=== PATIENT | male | born 1965 | race African-American/Black ===

== ENCOUNTER 2017-05-06 20:27 | Emergency (ER) | payer MEDICAID, OTHER ==
[~2017-05-06] VITALS: Ht 190.5 cm; Wt 173.0 kg
[~2017-05-06 20:27] MED LIST: ALBU17AE27 IH; CARV6 PO; FURO20 PO
[2017-05-06 20:46] LABS: GLUCOSE,POINT OF CARE 270 MG/DL (70-110)
[2017-05-06] MEDS ORDERED: EPIN0.3P3 IM (20:48)
[2017-05-06] MEDS ORDERED: INSU100I26 SQ (20:48)
[2017-05-06] MEDS ORDERED: INSU100V SQ (20:48)
[2017-05-06] MEDS ORDERED: MOME13HF PUFF (20:48)
[2017-05-06] MEDS ORDERED: FAMO20TA8 PO (20:48)
[2017-05-06] MEDS ORDERED: SITA50 PO (20:48)
[2017-05-06] MEDS ORDERED: ATOR40TA71 PO (20:48)
[2017-05-06] MEDS ORDERED: FURO40TA5 PO (20:48)
[2017-05-06] MEDS ORDERED: METF10002 PO (20:48)
[2017-05-06] MEDS ORDERED: MONT10TA24 PO (20:48)
[2017-05-06] MEDS ORDERED: LISI-618 PO (20:48)
[2017-05-06] MEDS ORDERED: OXYC10TA93 PO (20:48)
[2017-05-06 21:30] VITALS: BP 132/90
== END 2017-05-06 22:13 | disposition home or self-care (01) ==
LOC: EMS 20:28
DX: K94.11 Enterostomy hemorrhage (principal); E66.9 Obesity, unspecified; J45.909 Unspecified asthma, uncomplicated; E11.9 Type 2 diabetes mellitus without complications; I10 Essential (primary) hypertension; Z79.4 Long term (current) use of insulin; Z43.2 Encounter for attention to ileostomy; Z68.42 Body mass index [BMI] 45.0-49.9, adult; Y84.8 Other medical procedures as the cause of abnormal reaction of the patient, or of later complication, without mention of misadventure at the time of the procedure
CPT/HCPCS: 82962; 99283; 99284

== ENCOUNTER 2018-01-21 02:50 | Emergency (ER) | payer OTHER ==
[~2018-01-21] VITALS: Ht 190.5 cm; Wt 170.9 kg
[~2018-01-21 02:50] MED LIST changes: -ALBU17AE27 IH; +ATOR40TA71 PO; -CARV6 PO; +EPIN0.3P3 IM; +FAMO20TA8 PO; -FURO20 PO; +FURO40TA5 PO; +INSU100I26 SQ; +INSU100V SQ; +LISI-618 PO; +METF-446 PO; +MOME13HF PUFF; +MONT10TA24 PO; +OXYC10TA93 PO; +SITA50 PO
[2018-01-21 04:04] LABS: GLUCOSE,POINT OF CARE 438 MG/DL (70-110)
[2018-01-21] MEDS ORDERED: FUROSEMIDE 40 MG/4 ML VIAL IVP ONE (04:30)
[2018-01-21] MEDS ORDERED: INSULIN REGULAR, HUMAN 100 UNITS/ML IVP ONE (04:30)
[2018-01-21] MEDS ORDERED: ALBUTEROL SULFATE 2.5 MG/0.5 ML NEB SOLUTION NEB ONE (04:30)
[2018-01-21] MEDS ORDERED: MethylPREDNISolone SOD SUCC 125 MG/2 ML VIAL IVP ONE (04:30)
[2018-01-21] MEDS ORDERED: IPRATROPIUM BROMIDE 0.5 MG/2.5 ML NEB SOLUTION NEB ONE (04:30)
[2018-01-21 04:46] LABS: BASOPHILS % (AUTO) 1.2 % (0.0-2.0); EOSINOPHILS % (AUTO) 3.3 % (1.0-6.0); HEMATOCRIT 38.2 % (41-53); LYMPHOCYTES # (AUTO) 2.5 K/uL (1.0-4.8); LYMPHOCYTES % (AUTO) 39.2 % (22.0-44.0); MEAN CORPUSCULAR HEMOGLOBIN 31.3 pg (26.0-34.0); MEAN CORPUSCULAR HGB CONC 34.1 G/dL (31.0-37.0); MEAN CORPUSCULAR VOLUME 92 fL (80-100); MONOCYTES # (AUTO) 0.5 K/uL (0.1-1.0); MONOCYTES % (AUTO) 8.2 % (2.0-9.0); NEUTROPHILS % (AUTO) 48.1 % (40.0-70.0); PLATELET COUNT (AUTO) 174 K/uL (150-450); RED BLOOD CELL COUNT(AUTO) 4.15 MIL/uL (4.50-5.90); RED CELL DISTRIBUTION WIDTH 13.1 % (11.5-14.5)
[2018-01-21 04:58] LABS: ALANINE AMINOTRANSFERASE 62 U/L (12-78); ALBUMIN 3.3 g/dL (3.4-5.0); ALKALINE PHOSPHATASE 108 U/L (46-116); ANION GAP 6 mmol/L (8-16); ASPARTATE AMINOTRANSFERASE 21 U/L (15-37); BILIRUBIN,TOTAL 0.3 mg/dL (0.1-1.0); CALCIUM, TOTAL 8.4 mg/dL (8.8-10.5); CARBON DIOXIDE 28 mmol/L (22-29); CHLORIDE 101 mmol/L (98-107); CREATININE 1.37 mg/dL (0.60-1.30); GLOMERULAR FILTR. RATE CALC > 60 mL/min (>60); POTASSIUM 4.1 mmol/L (3.5-5.1); SODIUM SERUM 135 mmol/L (136-145); TOTAL PROTEIN, SERUM 7.5 g/dL (6.4-8.2); UREA NITROGEN, BLOOD 16 mg/dL (7-18)
[2018-01-21 05:02] LABS: GLUCOSE,RANDOM 425 mg/dL (70-110)
[2018-01-21 05:05] LABS: B-TYPE NATRIURETIC PEPTIDE < 5 pg/mL (0-100)
[2018-01-21] MEDS ORDERED: 0.9% SODIUM CHLORIDE 5 ML NEB SOLUTION NEB ONE (05:44)
[2018-01-21] MEDS ORDERED: ALBUTEROL SULFATE HFA 90 MCG/PUFF 8 GM INHALER IH ONE (06:00)
[2018-01-21 06:04] LABS: GLUCOSE,POINT OF CARE 363 MG/DL (70-110)
[2018-01-21 07:03] LABS: GLUCOSE,POINT OF CARE 389 MG/DL (70-110)
[2018-01-21 08:15] VITALS: BP 131/73
== END 2018-01-21 08:33 | disposition home or self-care (01) ==
LOC: EMS 02:50
DX: J45.901 Unspecified asthma with (acute) exacerbation (principal); E11.65 Type 2 diabetes mellitus with hyperglycemia; I10 Essential (primary) hypertension; E11.9 Type 2 diabetes mellitus without complications; Z79.4 Long term (current) use of insulin; Z91.013 Allergy to seafood
CPT/HCPCS: 36415; 71045; 80053; 82962; 83880; 84484; 85025; 93005; 94640; 96374; 96375; 99284; G0480; J1815; J1940; J2930; 94060; J3535

== ENCOUNTER 2018-05-07 12:34 | Emergency (ER) | payer OTHER ==
[~2018-05-07] VITALS: Ht 190.5 cm; Wt 166.8 kg
[2018-05-07 12:44] VITALS: BP 130/83
[2018-05-07 12:54] LABS: GLUCOSE,POINT OF CARE 280 MG/DL (70-110)
== END 2018-05-07 14:20 | disposition home or self-care (01) ==
LOC: EMS 12:34
DX: E11.9 Type 2 diabetes mellitus without complications (principal); I10 Essential (primary) hypertension; J45.909 Unspecified asthma, uncomplicated; Z76.0 Encounter for issue of repeat prescription; Z91.013 Allergy to seafood

== ENCOUNTER 2018-06-02 06:33 | Emergency (ER) | payer OTHER ==
[~2018-06-02] VITALS: Ht 190.5 cm; Wt 163.6 kg
[~2018-06-02 06:33] MED LIST changes: -INSU100I26 SQ; -INSU100V SQ; -METF-446 PO
[2018-06-02] MEDS ORDERED: ASPI-1182 PO (06:48)
[2018-06-02] MEDS ORDERED: INSNOV SQ (06:48)
[2018-06-02] MEDS ORDERED: INSU100I26 SQ (06:48)
[2018-06-02 06:59] LABS: GLUCOSE,POINT OF CARE 426 MG/DL (70-110)
[2018-06-02] MEDS ORDERED: INSULIN REGULAR, HUMAN 100 UNITS/ML SQ ONE ×2 (07:15→07:45)
[2018-06-02 08:45] LABS: GLUCOSE,POINT OF CARE 455 MG/DL (70-110)
[2018-06-02 09:35] VITALS: BP 149/84
[2018-06-02 09:40] LABS: GLUCOSE,POINT OF CARE 386 MG/DL (70-110)
== END 2018-06-02 09:54 | disposition home or self-care (01) ==
LOC: EMS 06:35
DX: E11.65 Type 2 diabetes mellitus with hyperglycemia (principal); I10 Essential (primary) hypertension; J45.909 Unspecified asthma, uncomplicated; Z43.2 Encounter for attention to ileostomy; Z79.4 Long term (current) use of insulin; Z79.82 Long term (current) use of aspirin; Z79.899 Other long term (current) drug therapy; Z76.0 Encounter for issue of repeat prescription
CPT/HCPCS: 82962; 96372; 99284; J1815

== ENCOUNTER 2019-03-06 07:26 | Emergency (ER) | payer OTHER ==
[~2019-03-06] VITALS: Ht 190.5 cm; Wt 159.1 kg
[~2019-03-06 07:26] MED LIST changes: +ASPI-1111 PO; -EPIN0.3P3 IM; -FAMO20TA8 PO; +INSNOV SQ; +INSU100I26 SQ; -MONT10TA24 PO; +MONT10TA26 PO; +OXYC10TA48 PO; -OXYC10TA93 PO; -SITA50 PO
[2019-03-06 08:09] LABS: GLUCOSE,POINT OF CARE 436 MG/DL (70-110)
[2019-03-06] MEDS ORDERED: SODIUM CHLORIDE 0.9% 1,000 ML IV ONE (08:30)
[2019-03-06 08:45] LABS: BASOPHILS % (AUTO) 1.5 % (0.0-2.0); EOSINOPHILS % (AUTO) 3.9 % (1.0-6.0); HEMATOCRIT 40.1 % (41-53); HEMOGLOBIN 13.8 g/dL (13.5-17.5); LYMPHOCYTES # (AUTO) 1.8 K/uL (1.0-4.8); LYMPHOCYTES % (AUTO) 36.4 % (22.0-44.0); MEAN CORPUSCULAR HEMOGLOBIN 31.7 pg (26.0-34.0); MEAN CORPUSCULAR HGB CONC 34.5 G/dL (31.0-37.0); MEAN CORPUSCULAR VOLUME 92 fL (80-100); MONOCYTES # (AUTO) 0.4 K/uL (0.1-1.0); MONOCYTES % (AUTO) 7.9 % (2.0-9.0); NEUTROPHILS # (AUTO) 2.5 K/uL (1.8-7.7); NEUTROPHILS % (AUTO) 50.3 % (40.0-70.0); PLATELET COUNT (AUTO) 215 K/uL (150-450); RED BLOOD CELL COUNT(AUTO) 4.37 MIL/uL (4.50-5.90); RED CELL DISTRIBUTION WIDTH 13.1 % (11.5-14.5)
[2019-03-06 08:54] LABS: ANION GAP 7 mmol/L (8-16); CALCIUM, TOTAL 8.8 mg/dL (8.8-10.5); CARBON DIOXIDE 27 mmol/L (22-29); CHLORIDE 103 mmol/L (98-107); CREATININE 1.23 mg/dL (0.60-1.30); GLOMERULAR FILTR. RATE CALC > 60 mL/min (>60); GLUCOSE,RANDOM 391 mg/dL (70-110); POTASSIUM 4.5 mmol/L (3.5-5.1); SODIUM SERUM 137 mmol/L (136-145); UREA NITROGEN, BLOOD 14 mg/dL (7-18)
[2019-03-06 09:00] LABS: ALANINE AMINOTRANSFERASE 58 U/L (12-78); ALBUMIN 3.4 g/dL (3.4-5.0); ALKALINE PHOSPHATASE 126 U/L (46-116); ASPARTATE AMINOTRANSFERASE 23 U/L (15-37); BILIRUBIN,TOTAL 0.4 mg/dL (0.1-1.0); TOTAL PROTEIN, SERUM 7.4 g/dL (6.4-8.2)
[2019-03-06 09:18] LABS: ACETONE,BLOOD NEGATIVE (NEGATIVE)
[2019-03-06 09:23] LABS: APPEARANCE,URINE CLEAR (CLEAR); BILIRUBIN,URINE NEGATIVE (NEGATIVE); GLUCOSE, URINE (UA) >=1000 mg/dL (NEGATIVE); KETONES,URINE NEGATIVE (NEGATIVE); LEUKOCYTE ESTERASE ,URINE NEGATIVE (NEGATIVE); NITRATE,URINE NEGATIVE (NEGATIVE); OCCULT BLOOD,URINE NEGATIVE (NEGATIVE); PROTEIN,URINE NEGATIVE (NEGATIVE); UROBILINOGEN,URINE 0.2 mg/dL (<=1.0)
[2019-03-06 09:37] LABS: BACTERIA,URINE None Seen /HPF (None Seen); RBC,URINE None Seen /HPF (0-2); SQUAMOUS EPITHELIAL CELL,UR None Seen /LPF (None Seen); WBC,URINE None Seen /HPF (0-5)
[2019-03-06 10:53] LABS: GLUCOSE,POINT OF CARE 356 MG/DL (70-110)
[2019-03-06 11:25] VITALS: BP 157/83
== END 2019-03-06 12:20 | disposition home or self-care (01) ==
LOC: EMS 07:26
DX: E11.65 Type 2 diabetes mellitus with hyperglycemia (principal); L60.0 Ingrowing nail; J45.909 Unspecified asthma, uncomplicated; I10 Essential (primary) hypertension; Z88.6 Allergy status to analgesic agent; Z91.013 Allergy to seafood; Z79.82 Long term (current) use of aspirin; Z79.899 Other long term (current) drug therapy; Z79.4 Long term (current) use of insulin
CPT/HCPCS: 36415; 73660; 80053; 81001; 82009; 82962; 85025; 96360; 96361; 99284; J7030

== ENCOUNTER 2019-05-05 23:46 | Emergency (ER) | payer OTHER ==
[~2019-05-05] VITALS: Ht 190.5 cm; Wt 118.2 kg
[2019-05-06] MEDS ORDERED: KETOROLAC TROMETHAMINE 30 MG/ML VIAL IM ONE
[2019-05-06] MEDS ORDERED: AMOX TR/POT CLAV 875 MG/125 MG TABLET PO ONE
[2019-05-06 00:15] LABS: BASOPHILS % (AUTO) 1.3 % (0.0-2.0); HEMATOCRIT 41.7 % (41-53); HEMOGLOBIN 14.1 g/dL (13.5-17.5); LYMPHOCYTES # (AUTO) 1.2 K/uL (1.0-4.8); LYMPHOCYTES % (AUTO) 23.7 % (22.0-44.0); MEAN CORPUSCULAR HEMOGLOBIN 31.1 pg (26.0-34.0); MEAN CORPUSCULAR HGB CONC 33.9 G/dL (31.0-37.0); MEAN CORPUSCULAR VOLUME 92 fL (80-100); MONOCYTES # (AUTO) 0.4 K/uL (0.1-1.0); MONOCYTES % (AUTO) 7.4 % (2.0-9.0); NEUTROPHILS # (AUTO) 3.3 K/uL (1.8-7.7); NEUTROPHILS % (AUTO) 64.6 % (40.0-70.0); PLATELET COUNT (AUTO) 187 K/uL (150-450); RED BLOOD CELL COUNT(AUTO) 4.55 MIL/uL (4.50-5.90); RED CELL DISTRIBUTION WIDTH 12.8 % (11.5-14.5)
[2019-05-06 00:31] LABS: ALANINE AMINOTRANSFERASE 38 U/L (12-78); ALBUMIN 3.8 g/dL (3.4-5.0); ALKALINE PHOSPHATASE 125 U/L (46-116); ANION GAP 10 mmol/L (8-16); ASPARTATE AMINOTRANSFERASE 15 U/L (15-37); BILIRUBIN,TOTAL 0.4 mg/dL (0.1-1.0); CALCIUM, TOTAL 9.1 mg/dL (8.8-10.5); CARBON DIOXIDE 23 mmol/L (22-29); CHLORIDE 100 mmol/L (98-107); CREATININE 1.38 mg/dL (0.60-1.30); GLOMERULAR FILTR. RATE CALC > 60 mL/min (>60); LIPASE 181 U/L (73-393); SODIUM SERUM 133 mmol/L (136-145); TOTAL PROTEIN, SERUM 7.6 g/dL (6.4-8.2); UREA NITROGEN, BLOOD 19 mg/dL (7-18)
[2019-05-06 00:33] LABS: GLUCOSE,RANDOM 515 mg/dL (70-110)
[2019-05-06] MEDS ORDERED: SODIUM CHLORIDE 0.9% 1,000 ML IV ONE (00:45)
[2019-05-06] MEDS ORDERED: INSULIN REGULAR, HUMAN 100 UNITS/ML SQ ONE (00:45)
[2019-05-06] MEDS ORDERED: KETOROLAC TROMETHAMINE 30 MG/ML VIAL IVP ONE (01:15)
[2019-05-06 02:09] LABS: GLUCOSE,POINT OF CARE 398 MG/DL (70-110)
[2019-05-06 02:20] VITALS: BP 149/89
== END 2019-05-06 02:22 | disposition home or self-care (01) ==
LOC: EMS 23:46
DX: S61.451A Open bite of right hand, initial encounter (principal); E11.65 Type 2 diabetes mellitus with hyperglycemia; I10 Essential (primary) hypertension; J45.909 Unspecified asthma, uncomplicated; Z91.013 Allergy to seafood; Z88.6 Allergy status to analgesic agent; Z79.899 Other long term (current) drug therapy; W54.0XXA Bitten by dog, initial encounter; Y93.89 Activity, other specified; Y92.89 Other specified places as the place of occurrence of the external cause; Y99.8 Other external cause status
CPT/HCPCS: 36415; 73130; 80053; 82962; 83690; 85025; 96361; 96372; 96374; 99284; J1815; J1885; J7030

== ENCOUNTER 2020-10-20 16:21 | Emergency (ER) | payer OTHER ==
[~2020-10-20] VITALS: Ht 190.5 cm; Wt 170.0 kg
[~2020-10-20 16:21] MED LIST changes: -ASPI-1111 PO; +ASPI-1444 PO; -LISI-618 PO; +LISI20TA24 PO; -MONT10TA26 PO; +MONT10TA32 PO
[2020-10-20] MEDS: AMOX TR/POT CLAV 875 MG/125 MG TABLET PO ONE (18:52)
[2020-10-20] MEDS: BACITRACIN 0.9 GM PACKET OINTMENT TP ONE (18:52)
[2020-10-20] MEDS: TraMADol HCL 50 MG TABLET PO ONE (18:53)
[2020-10-20 19:13] VITALS: BP 143/88
== END 2020-10-20 19:40 | disposition home or self-care (01) ==
LOC: EMS 16:21
DX: S01.352A Open bite of left ear, initial encounter (principal); S41.151A Open bite of right upper arm, initial encounter; I10 Essential (primary) hypertension; E11.9 Type 2 diabetes mellitus without complications; J45.909 Unspecified asthma, uncomplicated; Z88.6 Allergy status to analgesic agent; Z91.013 Allergy to seafood; Z79.899 Other long term (current) drug therapy; W54.0XXA Bitten by dog, initial encounter; Y93.89 Activity, other specified; Y92.89 Other specified places as the place of occurrence of the external cause; Y99.8 Other external cause status
CPT/HCPCS: 99283

== ENCOUNTER 2020-10-28 21:20 | Emergency (ER) | payer OTHER ==
[~2020-10-28] VITALS: Ht 190.5 cm; Wt 157.4 kg
[2020-10-28 22:28] LABS: GLUCOMETER DEV NAME(LOC) ERT.5; GLUCOSE,POINT OF CARE 292 MG/DL (70-110)
[2020-10-28 23:17] LABS: BASOPHILS % (AUTO) 1.5 % (0.0-2.0); EOSINOPHILS % (AUTO) 4.7 % (1.0-6.0); HEMATOCRIT 40.2 % (41-53); HEMOGLOBIN 13.5 g/dL (13.5-17.5); LYMPHOCYTES # (AUTO) 1.9 K/uL (1.0-4.8); LYMPHOCYTES % (AUTO) 34.7 % (22.0-44.0); MEAN CORPUSCULAR HEMOGLOBIN 30.9 pg (26.0-34.0); MEAN CORPUSCULAR HGB CONC 33.6 G/dL (31.0-37.0); MEAN CORPUSCULAR VOLUME 92 fL (80-100); MONOCYTES # (AUTO) 0.5 K/uL (0.1-1.0); MONOCYTES % (AUTO) 8.5 % (2.0-9.0); NEUTROPHILS # (AUTO) 2.8 K/uL (1.8-7.7); NEUTROPHILS % (AUTO) 50.6 % (40.0-70.0); PLATELET COUNT (AUTO) 223 K/uL (150-450); RED BLOOD CELL COUNT(AUTO) 4.37 MIL/uL (4.50-5.90); RED CELL DISTRIBUTION WIDTH 13.3 % (11.5-14.5)
[2020-10-28 23:29] LABS: ANION GAP 6 mmol/L (8-16); CALCIUM, TOTAL 8.9 mg/dL (8.8-10.5); CARBON DIOXIDE 27 mmol/L (22-29); CHLORIDE 105 mmol/L (98-107); CREATININE 1.07 mg/dL (0.60-1.30); GLOMERULAR FILTR. RATE CALC > 60 mL/min (>60); GLUCOSE,RANDOM 309 mg/dL (70-110); POTASSIUM 3.9 mmol/L (3.5-5.1); SODIUM SERUM 138 mmol/L (136-145); UREA NITROGEN, BLOOD 16 mg/dL (7-18)
[2020-10-28 23:44] LABS: B-TYPE NATRIURETIC PEPTIDE 5 pg/mL (0-100)
[2020-10-28 23:54] LABS: ALANINE AMINOTRANSFERASE 63 U/L (12-78); ALBUMIN 3.3 g/dL (3.4-5.0); ALKALINE PHOSPHATASE 139 U/L (46-116); ASPARTATE AMINOTRANSFERASE 38 U/L (15-37); BILIRUBIN,TOTAL 0.6 mg/dL (0.1-1.0); CREATINE KINASE, TOTAL ONLY 273 U/L (39-308); LIPASE 104 U/L (73-393); TOTAL PROTEIN, SERUM 7.5 g/dL (6.4-8.2)
[2020-10-29 00:45] VITALS: BP 134/88
[2020-10-29] MEDS ORDERED: AMOX TR/POT CLAV 875 MG/125 MG TABLET PO ONE (00:45)
== END 2020-10-29 01:05 | disposition home or self-care (01) ==
LOC: EMS 21:21
DX: S01.352A Open bite of left ear, initial encounter (principal); T36.8X5A Adverse effect of other systemic antibiotics, initial encounter; J45.909 Unspecified asthma, uncomplicated; E11.9 Type 2 diabetes mellitus without complications; I10 Essential (primary) hypertension; Z79.4 Long term (current) use of insulin; Z88.6 Allergy status to analgesic agent; Z91.013 Allergy to seafood; W54.0XXA Bitten by dog, initial encounter; Y93.89 Activity, other specified; Y92.89 Other specified places as the place of occurrence of the external cause; Y99.8 Other external cause status
CPT/HCPCS: 80053; 82550; 82962; 83690; 83735; 83880; 84484; 85025; 93005; 99284

== ENCOUNTER → 2021-03-09 12:21 | Emergency (ER) | payer OTHER ==
[~2021-03-09 12:21] MED LIST changes: +MONT-40 PO; -MONT10TA32 PO
== END | disposition left against medical advice (07) ==
LOC: EMS 12:21
DX: R10.9 Unspecified abdominal pain (principal); Z53.21 Procedure and treatment not carried out due to patient leaving prior to being seen by health care provider

== ENCOUNTER 2022-12-07 22:31 | Emergency (ER) | payer OTHER ==
[~2022-12-07] VITALS: Ht 190.5 cm; Wt 115.0 kg
[~2022-12-07 22:31] MED LIST changes: -ASPI-1444 PO; -FURO40TA5 PO; +GABA-534 PO; -INSNOV SQ; -INSU100I26 SQ; +INSU100V SQ; -LISI20TA24 PO; -MOME13HF PUFF; +MOME13HF12 IH; -MONT-40 PO; -OXYC10TA48 PO; +PRED-554 PO
[2022-12-07 22:39] VITALS: TEMP 98.6
[2022-12-07 22:50] VITALS: BP 134/74; PULSE 71; RESP 17
[2022-12-07] MEDS ORDERED: METOCLOPRAMIDE HCL 5 MG/ML 2 ML VIAL IVP ONE (23:00)
[2022-12-07] MEDS ORDERED: SODIUM CHLORIDE 0.9% 1,000 ML IV ONE (23:00)
[2022-12-07 23:12] LABS: BASOPHILS % (AUTO) 1.3 % (0.0-2.0); EOSINOPHILS % (AUTO) 6.8 % (1.0-6.0); HEMATOCRIT 34.3 % (41-53); HEMOGLOBIN 12.1 g/dL (13.5-17.5); LYMPHOCYTES # (AUTO) 1.7 K/uL (1.0-4.8); MEAN CORPUSCULAR HEMOGLOBIN 32.4 pg (26.0-34.0); MEAN CORPUSCULAR HGB CONC 35.2 G/dL (31.0-37.0); MEAN CORPUSCULAR VOLUME 92 fL (80-100); MONOCYTES # (AUTO) 0.4 K/uL (0.1-1.0); MONOCYTES % (AUTO) 8.5 % (2.0-9.0); NEUTROPHILS # (AUTO) 2.7 K/uL (1.8-7.7); NEUTROPHILS % (AUTO) 51.4 % (40.0-70.0); PLATELET COUNT (AUTO) 200 K/uL (150-450); RED BLOOD CELL COUNT(AUTO) 3.72 MIL/uL (4.50-5.90); RED CELL DISTRIBUTION WIDTH 13.6 % (11.5-14.5); WHITE BLOOD COUNT (AUTO) 5.2 K/uL (4.5-11.0)
[2022-12-07 23:22] LABS: ANION GAP 11 mmol/L (8-16); CALCIUM, TOTAL 8.5 mg/dL (8.8-10.5); CARBON DIOXIDE 25 mmol/L (22-29); CHLORIDE 101 mmol/L (98-107); GLOMERULAR FILTR. RATE CALC > 60 mL/min (>60); GLUCOSE,RANDOM 294 mg/dL (70-110); POTASSIUM 3.6 mmol/L (3.5-5.1); SODIUM SERUM 137 mmol/L (136-145); UREA NITROGEN, BLOOD 15 mg/dL (7-18)
[2022-12-07 23:28] LABS: ALANINE AMINOTRANSFERASE 43 U/L (12-78); ALKALINE PHOSPHATASE 162 U/L (46-116); ASPARTATE AMINOTRANSFERASE 41 U/L (15-37); BILIRUBIN,TOTAL 0.5 mg/dL (0.1-1.0); LIPASE 43 U/L (16-77); TOTAL PROTEIN, SERUM 7.1 g/dL (6.4-8.2)
[2022-12-07 23:32] LABS: TROPONIN I-HIGH SENSITIVITY 18 ng/L (<76)
== END 2022-12-08 04:04 | disposition home or self-care (01) ==
LOC: EMS 22:32
DX: K52.9 Noninfective gastroenteritis and colitis, unspecified (principal); J45.909 Unspecified asthma, uncomplicated; E11.9 Type 2 diabetes mellitus without complications; I10 Essential (primary) hypertension; Z88.6 Allergy status to analgesic agent; Z91.013 Allergy to seafood
CPT/HCPCS: 99285; 96374; 96361; 80053; 83690; 84484; 85025; 74022; 93005; 74176; J2765; J7030; 36415-L1; 36415-TC

== ENCOUNTER 2023-06-02 20:34 | Emergency (ER) | payer OTHER ==
[~2023-06-02 20:34] MED LIST changes: +ALBU18HF12 IH; +DICL75TA5 PO; +FURO40TA5 PO; -GABA-534 PO; +HYDR50TA37 PO; +INSU100I26 SQ; +INSU100I3 SQ; -INSU100V SQ; +LISI40TA9 PO; +MOME13HF11 IH; -MOME13HF12 IH; +OXYC10TA48 PO; -PRED-554 PO
== END 2023-06-02 21:02 | disposition left against medical advice (07) ==
LOC: EMS 20:36
DX: Z53.21 Procedure and treatment not carried out due to patient leaving prior to being seen by health care provider (principal)

== ENCOUNTER 2023-06-24 17:29 | Emergency (ER) | payer OTHER ==
[~2023-06-24] VITALS: Ht 190.5 cm; Wt 150.0 kg
[2023-06-24 17:50] VITALS: TEMP 98.1
[2023-06-24] MEDS: OxyCODONE HCL 5 MG IR TABLET PO ONE (18:40)
[2023-06-24 22:30] VITALS: BP 145/84; PULSE 78; RESP 17
== END 2023-06-24 23:36 | disposition home or self-care (01) ==
LOC: EMS 17:30
DX: S90.31XA Contusion of right foot, initial encounter (principal); X58.XXXA Exposure to other specified factors, initial encounter; Y93.89 Activity, other specified; Y92.89 Other specified places as the place of occurrence of the external cause; Y99.8 Other external cause status; E11.9 Type 2 diabetes mellitus without complications; I10 Essential (primary) hypertension; J45.909 Unspecified asthma, uncomplicated; Z88.6 Allergy status to analgesic agent; Z91.030 Bee allergy status; Z91.013 Allergy to seafood
CPT/HCPCS: 99284; 73610-TC; 73630-TC; Z7502; Z7610

== ENCOUNTER 2024-03-26 21:53 | Emergency (ER) | payer OTHER ==
[~2024-03-26] VITALS: Ht 190.5 cm; Wt 154.6 kg
[2024-03-26 22:27] VITALS: TEMP 98.3
[2024-03-27 00:07] LABS: APPEARANCE,URINE CLEAR (CLEAR); BILIRUBIN,URINE NEGATIVE (NEGATIVE); COLOR,URINE LIGHT YELLOW (YELLOW); GLUCOSE, URINE (UA) >=1000 mg/dL (NEGATIVE); KETONES,URINE NEGATIVE (NEGATIVE); LEUKOCYTE ESTERASE ,URINE NEGATIVE (NEGATIVE); NITRATE,URINE NEGATIVE (NEGATIVE); OCCULT BLOOD,URINE NEGATIVE (NEGATIVE); PROTEIN,URINE TRACE mg/dL (NEGATIVE); SPECIFIC GRAVITIY, URINE 1.029 (1.003-1.030); UROBILINOGEN,URINE <=1.0 mg/dL (<=1.0)
[2024-03-27 00:24] LABS: ANION GAP 9 mmol/L (8-16); CALCIUM, TOTAL 8.5 mg/dL (8.8-10.5); CARBON DIOXIDE 24 mmol/L (22-29); CHLORIDE 102 mmol/L (98-107); CREATININE 1.43 mg/dL (0.60-1.30); GLOMERULAR FILTR. RATE CALC > 60 mL/min (>60); GLUCOSE,RANDOM 352 mg/dL (70-110); SODIUM SERUM 135 mmol/L (136-145); UREA NITROGEN, BLOOD 14 mg/dL (7-18)
[2024-03-27 00:26] LABS: BACTERIA,URINE Rare /HPF (None Seen); RBC,URINE 0-2 /HPF (0-2); WBC,URINE 0-2 /HPF (0-5)
[2024-03-27] MEDS: SODIUM CHLORIDE 0.9% 1,000 ML IV ONE (00:28)
[2024-03-27 00:34] LABS: ALANINE AMINOTRANSFERASE 58 U/L (12-78); ALBUMIN 3.2 g/dL (3.4-5.0); ALKALINE PHOSPHATASE 139 U/L (46-116); ASPARTATE AMINOTRANSFERASE 30 U/L (15-37); BILIRUBIN,TOTAL 0.6 mg/dL (0.1-1.0); CREATINE KINASE, TOTAL ONLY 204 U/L (39-308); LIPASE 53 U/L (16-77); TOTAL PROTEIN, SERUM 7.6 g/dL (6.4-8.2); TROPONIN I-HIGH SENSITIVITY 29 ng/L (<76)
[2024-03-27 00:37] LABS: BASOPHILS % (AUTO) 0.8 % (0.0-2.0); EOSINOPHILS % (AUTO) 1.7 % (1.0-6.0); HEMOGLOBIN 14.1 g/dL (13.5-17.5); LYMPHOCYTES # (AUTO) 1.9 K/uL (1.0-4.8); LYMPHOCYTES % (AUTO) 27.4 % (22.0-44.0); MEAN CORPUSCULAR HEMOGLOBIN 31.4 pg (26.0-34.0); MEAN CORPUSCULAR HGB CONC 34.3 G/dL (31.0-37.0); MEAN CORPUSCULAR VOLUME 92 fL (80-100); MONOCYTES # (AUTO) 0.5 K/uL (0.1-1.0); MONOCYTES % (AUTO) 7.3 % (2.0-9.0); NEUTROPHILS # (AUTO) 4.3 K/uL (1.8-7.7); NEUTROPHILS % (AUTO) 62.8 % (40.0-70.0); PLATELET COUNT (AUTO) 188 K/uL (150-450); RED BLOOD CELL COUNT(AUTO) 4.48 MIL/uL (4.50-5.90); WHITE BLOOD COUNT (AUTO) 6.9 K/uL (4.5-11.0)
[2024-03-27 00:42] LABS: B-TYPE NATRIURETIC PEPTIDE 65 pg/mL (0-100)
[2024-03-27] MEDS: ONDANSETRON HCL 4 MG/2 ML VIAL IVP ONE (00:42)
[2024-03-27] MEDS: INSULIN REGULAR, HUMAN 100 UNITS/ML IVP ONE (00:43)
[2024-03-27 01:06] LABS: COVID AG,FIA SOURCE NASAL SWAB
[2024-03-27 01:07] VITALS: BP 163/98; PULSE 94; RESP 17; O2SAT 98
[2024-03-27 01:29] LABS: INFLUENZA TYPE A NEGATIVE FOR TYPE A (NEGATIVE); INFLUENZA TYPE B NEGATIVE FOR TYPE B (NEGATIVE)
[2024-03-27 01:30] LABS: SARS-COV2 (COVID) ANTIGEN,FIA Negative (Negative)
== END 2024-03-27 03:23 | disposition home or self-care (01) ==
LOC: EMS 21:53
DX: E11.65 Type 2 diabetes mellitus with hyperglycemia (principal); J45.909 Unspecified asthma, uncomplicated; I10 Essential (primary) hypertension; M19.90 Unspecified osteoarthritis, unspecified site; Z79.4 Long term (current) use of insulin; Z79.51 Long term (current) use of inhaled steroids; Z79.899 Other long term (current) drug therapy; Z88.5 Allergy status to narcotic agent; Z91.030 Bee allergy status; Z20.822 Contact with and (suspected) exposure to COVID-19
CPT/HCPCS: 99284; 87426; 80048; 80076; 81001; 82550; 82962 ×2; 83690; 83880; 84484; 85025; 87804; 36415; 93005; 96374; 96361; 96375; J1815; J2405; J7030

== ENCOUNTER 2024-07-04 23:11 | Emergency (ER) | payer OTHER ==
[~2024-07-04] VITALS: Ht 190.5 cm; Wt 148.6 kg
[~2024-07-04 23:11] MED LIST changes: +LISI-1024 PO; -LISI40TA9 PO
[2024-07-04 23:38] VITALS: TEMP 97.6
[2024-07-05 00:01] LABS: GLUCOMETER DEV NAME(LOC) ERT.7; GLUCOSE,POINT OF CARE 422 MG/DL (70-110)
[2024-07-05 00:31] LABS: EOSINOPHILS % (AUTO) 2.5 % (1.0-6.0); HEMATOCRIT 39.1 % (41-53); HEMOGLOBIN 13.3 g/dL (13.5-17.5); LYMPHOCYTES # (AUTO) 1.6 K/uL (1.0-4.8); LYMPHOCYTES % (AUTO) 27.8 % (22.0-44.0); MEAN CORPUSCULAR HEMOGLOBIN 30.8 pg (26.0-34.0); MEAN CORPUSCULAR VOLUME 91 fL (80-100); MONOCYTES # (AUTO) 0.3 K/uL (0.1-1.0); MONOCYTES % (AUTO) 5.9 % (2.0-9.0); NEUTROPHILS # (AUTO) 3.6 K/uL (1.8-7.7); NEUTROPHILS % (AUTO) 62.8 % (40.0-70.0); PLATELET COUNT (AUTO) 230 K/uL (150-450); RED BLOOD CELL COUNT(AUTO) 4.32 MIL/uL (4.50-5.90); RED CELL DISTRIBUTION WIDTH 13.1 % (11.5-14.5); WHITE BLOOD COUNT (AUTO) 5.7 K/uL (4.5-11.0)
[2024-07-05 00:39] LABS: CALCIUM, TOTAL 8.7 mg/dL (8.8-10.5); CREATININE 1.53 mg/dL (0.60-1.30); POTASSIUM 4.2 mmol/L (3.5-5.1)
[2024-07-05 00:41] LABS: ALBUMIN 3.1 g/dL (3.4-5.0); BILIRUBIN,DIRECT 0.1 mg/dL (0.00-0.20); BILIRUBIN,TOTAL 0.5 mg/dL (0.1-1.0); TOTAL PROTEIN, SERUM 7.3 g/dL (6.4-8.2)
[2024-07-05 01:59] LABS: APPEARANCE,URINE CLEAR (CLEAR); BILIRUBIN,URINE NEGATIVE (NEGATIVE); COLOR,URINE LIGHT YELLOW (YELLOW); GLUCOSE, URINE (UA) >=1000 mg/dL (NEGATIVE); KETONES,URINE NEGATIVE (NEGATIVE); LEUKOCYTE ESTERASE ,URINE NEGATIVE (NEGATIVE); NITRATE,URINE NEGATIVE (NEGATIVE); OCCULT BLOOD,URINE NEGATIVE (NEGATIVE); PROTEIN,URINE TRACE mg/dL (NEGATIVE); SPECIFIC GRAVITIY, URINE 1.031 (1.003-1.030); UROBILINOGEN,URINE <=1.0 mg/dL (<=1.0)
[2024-07-05 02:14] LABS: BACTERIA,URINE None Seen /HPF (None Seen); RBC,URINE None Seen /HPF (0-2); SQUAMOUS EPITHELIAL CELL,UR Few /LPF (None Seen); WBC,URINE None Seen /HPF (0-5)
[2024-07-05] MEDS: DICYCLOMINE HCL 10 MG CAPSULE PO ONE (03:40)
[2024-07-05] MEDS: SIMETHICONE 80 MG CHEWABLE TABLET CHEW ONE (03:41)
[2024-07-05] MEDS: INSULIN LISPRO 100 UNITS/ML SQ ONE (03:42)
[2024-07-05 03:51] LABS: GLUCOMETER DEV NAME(LOC) ERT.7; GLUCOSE,POINT OF CARE 357 MG/DL (70-110)
[2024-07-05] MEDS ORDERED: DICY-1 PO (05:24)
[2024-07-05 05:46] VITALS: BP 126/82; PULSE 76; RESP 18; O2SAT 98
== END 2024-07-05 06:09 | disposition home or self-care (01) ==
LOC: EMS 23:15
DX: R10.9 Unspecified abdominal pain (principal); E11.65 Type 2 diabetes mellitus with hyperglycemia; I10 Essential (primary) hypertension; J45.909 Unspecified asthma, uncomplicated; Z88.5 Allergy status to narcotic agent; Z91.030 Bee allergy status; Z79.4 Long term (current) use of insulin; Z79.51 Long term (current) use of inhaled steroids; Z79.899 Other long term (current) drug therapy
CPT/HCPCS: 80048; 80076; 81001; 82962; 83690; 85025; 96372; 99283; J1815

== ENCOUNTER 2024-07-23 21:39 | Emergency (ER) | payer OTHER ==
[~2024-07-23] VITALS: Ht 190.5 cm; Wt 150.0 kg
[~2024-07-23 21:39] MED LIST changes: +DICY-1 PO
[2024-07-23 21:48] VITALS: TEMP 98.2
[2024-07-23] MEDS ORDERED: EPINEPHrine 1:1,000 [1 MG/ML] VIAL ONE (21:59)
[2024-07-23] MEDS: FAMOTIDINE 20 MG/2 ML VIAL IVP ONE (22:27)
[2024-07-23] MEDS: DiphenhydrAMINE HCL 50 MG/ML VIAL IVP ONE (22:27)
[2024-07-24] MEDS ORDERED: EPIN0.3P3 IM (00:05)
[2024-07-24 00:58] VITALS: BP 136/78; PULSE 72; RESP 14; O2SAT 96
== END 2024-07-24 01:08 | disposition home or self-care (01) ==
LOC: EMS 21:39
DX: T78.2XXA Anaphylactic shock, unspecified, initial encounter (principal); E11.9 Type 2 diabetes mellitus without complications; I10 Essential (primary) hypertension; J45.909 Unspecified asthma, uncomplicated; M19.90 Unspecified osteoarthritis, unspecified site; Z98.890 Other specified postprocedural states; Z79.4 Long term (current) use of insulin; Z91.030 Bee allergy status; Z88.5 Allergy status to narcotic agent; Z79.51 Long term (current) use of inhaled steroids; Z79.899 Other long term (current) drug therapy; Y99.8 Other external cause status
CPT/HCPCS: 99291; 96374; 96375; 82962; J1200; J0171; J3490